=== PATIENT | male | born 1965 | race Caucasian/White ===

== ENCOUNTER 2016-12-30 14:11 | Emergency (ER) | payer MEDICAID ==
[~2016-12-30] VITALS: Ht 177.8 cm; Wt 91.4 kg
[~2016-12-30 14:11] MED LIST: ASPI-496
[2016-12-30 14:15] VITALS: BP 156/92
[2016-12-30] MEDS ORDERED: KETOROLAC 30 MG/1 ML ONE (14:55)
[2016-12-30] MEDS ORDERED: KETOROLAC 30 MG/1 ML IM ONE (15:00)
== END 2016-12-30 15:03 | disposition home or self-care (01) ==
LOC: ED 14:50
DX: M54.42 Lumbago with sciatica, left side (principal); I25.10 Atherosclerotic heart disease of native coronary artery without angina pectoris; I25.2 Old myocardial infarction; Z95.5 Presence of coronary angioplasty implant and graft
CPT/HCPCS: 96372; 99283; J1885

== ENCOUNTER 2018-01-31 10:45 | Emergency (ER) | payer MEDICAID ==
[~2018-01-31] VITALS: Ht 177.8 cm; Wt 95.1 kg
[2018-01-31] MEDS ORDERED: KETOROLAC 30 MG/1 ML ONE (11:24)
[2018-01-31] MEDS ORDERED: ATOR40TA78 PO (11:44)
[2018-01-31] MEDS ORDERED: ASPI-650 PO (11:44)
[2018-01-31] MEDS ORDERED: CARV25TA12 PO (11:44)
[2018-01-31] MEDS ORDERED: KETOROLAC 30 MG/1 ML IM ONE (12:00)
== END 2018-01-31 12:11 | disposition home or self-care (01) ==
LOC: ED 11:30
DX: M54.41 Lumbago with sciatica, right side (principal); I25.2 Old myocardial infarction; I25.10 Atherosclerotic heart disease of native coronary artery without angina pectoris; I11.9 Hypertensive heart disease without heart failure; F17.200 Nicotine dependence, unspecified, uncomplicated
CPT/HCPCS: 96372; 99283; J1885

== ENCOUNTER 2018-07-21 07:29 | Emergency (ER) | payer MEDICAID ==
[~2018-07-21] VITALS: Ht 177.8 cm; Wt 91.7 kg
[~2018-07-21 07:29] MED LIST changes: +ASPI-650 PO; +ATOR40TA78 PO; +CARV25TA12 PO
[2018-07-21] MEDS ORDERED: KETOROLAC 30 MG/1 ML ONE (08:02)
--- NOTE | 2018-07-21 08:05 | NUR ---
PT. IS A & O X 4 WITH C/O LEFT CALF PAIN, LEFT ANKLE PAIN AND SWELLING. PT. DENIES TRAUMA. PT. STATES HE DOES HAVE A HX OF GOUT. PT. IS USING HIS OWN CRUTCHES FROM HOME TO WALK. CMS CHECKS ARE INTACT WITH PULSES +2 THROUGHOUT AND CAP REFILL BRISK. PT. WAS MEDICATED FOR PAIN ORDERED. PT. HAS THE HOB ELEVATED GREATER THAN 30 DEGREES AND THE CALL LIGHT IS IN PLACE.
[2018-07-21] MEDS ORDERED: KETOROLAC 30 MG/1 ML IM ONE (08:30)
[2018-07-21 09:39] LABS: BASOPHILS # (AUTO) 0.02 x10^3/uL (0-0.1); BASOPHILS % (AUTO) 0 % (0-1); EOSINOPHILS # (AUTO) 0.17 x10^3/uL (0-0.4); EOSINOPHILS % (AUTO) 2 % (1-7); LYMPHOCYTES # (AUTO) 1.52 x10^3/uL (1-3.4); LYMPHOCYTES % (AUTO) 18 % (22-44); MD NO; MEAN CORPUSCULAR HEMOGLOBIN 35.3 pg (27.5-34.5); MEAN CORPUSCULAR HGB CONC 33.8 g/dL (33.2-36.2); MEAN CORPUSCULAR VOLUME 104.5 fL (81-97); MEAN PLATELET VOLUME 9.8 fL (7.4-10.4); MONOCYTES # (AUTO) 0.69 x10^3/uL (0.2-0.8); MONOCYTES % (AUTO) 8 % (2-9); NEUTROPHILS # (AUTO) 6.21 x10^3/uL (1.8-6.8); NEUTROPHILS % (AUTO) 72 % (42-75); PLATELET COUNT 136 x10^3/uL (130-400); RED BLOOD COUNT 4.84 x10^6/uL (4.38-5.82); RED CELL DISTRIBUTION WIDTH 14.2 % (9.4-14.8)
--- NOTE | 2018-07-21 09:41 | NUR ---
VITALS ARE STABLE. PT. IS RESTING WITHOUT CONCERNS.
[2018-07-21 09:54] LABS: CHLORIDE 109 mmol/L (98-107)
[2018-07-21 10:00] LABS: ALBUMIN 3.4 g/dL (3.4-5.0); ANION GAP 7 mmol/L (5-15); CALCIUM 8.8 mg/dL (8.5-10.1); CREATININE 1.23 mg/dL (0.7-1.3)
--- NOTE | 2018-07-21 10:54 | NUR ---
PT. WAS GIVEN DISCHARGE INSTRUCTIONS AND SCRIPTS. UNDERSTANDING WAS VERBALIZED ALONG WITH WILLINGNESS TO COMPLY. PT. WAS AMBULATORY TO THE DISCHARGE DESK WITH CRUTCHES. VSS.
[2018-07-21 10:56] VITALS: BP 140/84
== END 2018-07-21 10:58 | disposition home or self-care (01) ==
LOC: ED 10:02
DX: M13.172 Monoarthritis, not elsewhere classified, left ankle and foot (principal); I25.10 Atherosclerotic heart disease of native coronary artery without angina pectoris; I25.2 Old myocardial infarction; I10 Essential (primary) hypertension
CPT/HCPCS: 36415; 73610; 73630; 80048; 82040; 84550; 85025; 93971; 96372; 99284; J1885

== ENCOUNTER 2020-09-29 13:40 | Emergency (ER) | payer MEDICAID ==
[~2020-09-29] VITALS: Ht 177.8 cm; Wt 87.7 kg
[~2020-09-29 13:40] MED LIST changes: +ASPI-1026 PO; -ASPI-650 PO
[2020-09-29 13:43] VITALS: BP 131/92
--- NOTE | 2020-09-29 15:45 | NUR ---
mechatronics technologist: Pt ambulatory to room from lobby at this time.
--- NOTE | 2020-09-29 15:56 | NUR ---
INTIAL CONTACT WITH PT:"I HAVE DEGENERATIVE DISC DISEASE AND THEY WON'T DO ANYTHING FOR ME SO I HAVE TO KEEP COMING IN HERE AND GET A TORADOL. PT REFUSES TO DRESS IN PT GOWN OR LEAVE WHEELCHAIR TO BE IN BED. AWAITING ORDERS.
[2020-09-29] MEDS ORDERED: KETOROLAC 30 MG/1 ML IM ONE (16:30)
[2020-09-29] MEDS ORDERED: KETOROLAC 30 MG/1 ML ONE (16:32)
--- NOTE | 2020-09-29 16:41 | NUR ---
pt medicated per emar. betheln
--- NOTE | 2020-09-29 17:20 | NUR ---
Patient given discharge instructions and they have confirmed that they understand the instructions. Patient ambulatory with steady gait. NAD, all questions answered appropriately, denies additional needs at this time. No personal belongings left in room after discharge.
== END 2020-09-29 17:20 | disposition home or self-care (01) ==
LOC: ED 16:23
DX: M54.41 Lumbago with sciatica, right side (principal); I10 Essential (primary) hypertension
CPT/HCPCS: 96372; 99283; J1885

== ENCOUNTER 2020-11-08 11:36 | Emergency (ER) | payer MEDICAID ==
[~2020-11-08] VITALS: Ht 177.8 cm; Wt 90.3 kg
[2020-11-08 11:38] VITALS: BP 137/68
[2020-11-08] MEDS ORDERED: CYCLOBENZAPRINE 10 MG TABLET ONE (11:57)
[2020-11-08] MEDS ORDERED: KETOROLAC 30 MG/1 ML ONE (11:58)
[2020-11-08] MEDS ORDERED: ACETAMINOPHEN 500 MG TABLET ONE (11:58)
[2020-11-08] MEDS ORDERED: ACETAMINOPHEN 500 MG TABLET PO ONE (12:00)
[2020-11-08] MEDS ORDERED: CYCLOBENZAPRINE 10 MG TABLET PO ONE (12:00)
[2020-11-08] MEDS ORDERED: KETOROLAC 30 MG/1 ML IM ONE (12:00)
--- NOTE | 2020-11-08 12:06 | NUR ---
MEDS. TO XR.
== END 2020-11-08 13:04 | disposition home or self-care (01) ==
LOC: ED 12:40
DX: M54.41 Lumbago with sciatica, right side (principal); I25.2 Old myocardial infarction; I25.10 Atherosclerotic heart disease of native coronary artery without angina pectoris; I10 Essential (primary) hypertension; Z88.8 Allergy status to other drugs, medicaments and biological substances
CPT/HCPCS: 72110; 96372; 99283; J1885